=== PATIENT | male | born 1980 | race Caucasian/White ===

== ENCOUNTER 2017-11-26 00:30 | Emergency (ER) | payer SELFPAY ==
[~2017-11-26] VITALS: Ht 187.9 cm; Wt 130.2 kg
[~2017-11-26 00:30] MED LIST: IBU800 M1 PO; MOTRIN800 MG PO; NKHM; NORFLEX100 MG PO; NORVASC5 MG PO
[2017-11-26 01:32] LABS: BASO % 0.1 % (0.0-1.0); EOS % 0.2 % (1.0-4.0); HEMATOCRIT 42.6 % (42.0-52.0); HEMOGLOBIN 14.6 g/dl (14.0-18.0); LYMPH # 0.9 10*3/uL (1.3-4.4); LYMPH % 7.9 % (27.0-41.0); MEAN CELL VOLUME 91.2 fl (80.0-94.0); MEAN CORPUSCULAR HGB 31.3 pg (27.0-31.0); MEAN CORPUSCULAR HGB CONC 34.3 g/dl (33.0-37.0); MEAN PLATELET VOLUME 8.8 fl (9.6-12.3); MONO # 0.6 10*3/uL (0.1-1.0); MONO % 5.1 % (3.0-9.0); NEUT # 9.2 10*3/uL (2.3-7.9); NEUT % 86.4 % (47.0-73.0); PLATELET COUNT AUTOMATED 204 10*3/uL (130-400); RED BLOOD COUNT 4.67 10*6/uL (4.50-5.90); RED CELL DISTRI WIDTH 12.2 % (0-14.5); WHITE BLOOD COUNT 10.7 10*3/uL (4.8-10.8)
[2017-11-26 01:49] LABS: ALBUMIN 3.6 gm/dl (3.1-4.5); ALKALINE PHOSPHATASE 80 U/L (45-117); BUN 9 mg/dl (7-24); CHLORIDE 104 mmol/L (98-107); CREATININE 0.96 mg/dL (0.70-1.30); LIPASE 127 U/L (73-393); POTASSIUM 3.7 mmol/L (3.5-5.1); SGOT/AST 20 IU/L (3-35); SGPT/ALT 42 U/L (12-78); SODIUM 140 mmol/L (136-145)
[2017-11-26 01:58] LABS: TROPONIN I < 0.015 ng/ml (<0.045)
[2017-11-26 02:23] LABS: BILIRUBIN 1+ (NEGATIVE); BLOOD TRACE-LYSED (NEGATIVE); CLARITY CLEAR (CLEAR); COLOR YELLOW (YELLOW); GLUCOSE NEGATIVE (NEGATIVE); KETONE TRACE (NEGATIVE); LEUKO ESTERASE NEGATIVE (NEGATIVE); NITRITE NEGATIVE (NEGATIVE)
[2017-11-26 02:40] LABS: MUCOUS TRACE
== END 2017-11-26 02:35 | disposition home or self-care (01) ==
LOC: ED 00:30
PROVIDERS: Physician Assistant
DX: R50.9 Fever, unspecified (principal); F17.200 Nicotine dependence, unspecified, uncomplicated; Z79.899 Other long term (current) drug therapy

== ENCOUNTER 2020-05-26 00:59 | Emergency (ER) | payer SELFPAY ==
[~2020-05-26] VITALS: Ht 187.9 cm; Wt 145.1 kg
== END 2020-05-26 02:55 | disposition home or self-care (01) ==
LOC: ED
DX: I83.892 Varicose veins of left lower extremity with other complications (principal); I10 Essential (primary) hypertension; J45.909 Unspecified asthma, uncomplicated

== ENCOUNTER 2020-10-21 14:32 | Emergency (ER) | payer SELFPAY | END 2020-10-21 15:46 | disposition home or self-care (01) | LOC: ED 14:32 | DX: S60.022A Contusion of left index finger without damage to nail, initial encounter (principal); J45.909 Unspecified asthma, uncomplicated; I10 Essential (primary) hypertension; Z79.899 Other long term (current) drug therapy; X58.XXXA Exposure to other specified factors, initial encounter; Y93.89 Activity, other specified; Y92.89 Other specified places as the place of occurrence of the external cause; Y99.8 Other external cause status ==

== ENCOUNTER 2021-08-08 04:53 | Emergency (ER) | payer OTHER ==
[~2021-08-08] VITALS: Ht 187.9 cm
[2021-08-08 06:59] LABS: BILIRUBIN Negative (Negative); BLOOD Negative (Negative); CLARITY Clear (Clear); COLOR Yellow (Yellow); GLUCOSE 1+ (Negative); KETONE Negative (Negative); LEUKO ESTERASE Negative (Negative); NITRITE Negative (Negative); UROBILINOGEN 0.2 E.U./dl (0.0-1.0)
[2021-08-08 07:02] LABS: PH 8.5 (4.5-8.0)
[2021-08-08 07:10] LABS: RBC 0-2 rbc/hpf (0-2); WBC 0-2 wbc/hpf (0-5)
[2021-08-08 07:33] LABS: BASO % 0.3 % (0.0-1.0); EOS % 0.3 % (1.0-4.0); HEMATOCRIT 48.3 % (42.0-52.0); LYMPH # 1.3 10*3/uL (1.3-4.4); LYMPH % 12.5 % (27.0-41.0); MEAN CELL VOLUME 96.4 fl (80.0-94.0); MEAN CORPUSCULAR HGB 31.1 pg (27.0-31.0); MEAN CORPUSCULAR HGB CONC 32.3 g/dl (33.0-37.0); MONO # 0.5 10*3/uL (0.1-1.0); MONO % 4.4 % (3.0-9.0); NEUT # 8.4 10*3/uL (2.3-7.9); NEUT % 82.3 % (47.0-73.0); PLATELET COUNT AUTOMATED 243 10*3/uL (130-400); RED BLOOD COUNT 5.01 10*6/uL (4.50-5.90); RED CELL DISTRI WIDTH 12.7 % (0-14.5); WHITE BLOOD COUNT 10.2 10*3/uL (4.8-10.8)
[2021-08-08 07:47] LABS: ALKALINE PHOSPHATASE 90 U/L (45-117); BUN 10 mg/dl (7-24); CHLORIDE 107 mmol/L (98-107); CREATININE 0.83 mg/dL (0.70-1.30); LIPASE 128 U/L (73-393); SGOT/AST 15 IU/L (3-35); SGPT/ALT 40 U/L (12-78); SODIUM 140 mmol/L (136-145); TOTAL PROTEIN 7.5 gm/dL (6.4-8.2)
[2021-08-08] MEDS ORDERED: FLAGYL500 MG PO (08:03)
[2021-08-08] MEDS ORDERED: CIPRO500 MG PO (08:03)
== END 2021-08-08 08:06 | disposition home or self-care (01) ==
LOC: ED 04:53
PROVIDERS: Emergency Medicine; Internal Medicine
DX: K57.90 Diverticulosis of intestine, part unspecified, without perforation or abscess without bleeding (principal); K76.0 Fatty (change of) liver, not elsewhere classified; K80.80 Other cholelithiasis without obstruction; R73.03 Prediabetes

== ENCOUNTER 2024-03-31 09:06 | Emergency (ER) | payer SELFPAY ==
[~2024-03-31] VITALS: Ht 187.9 cm; Wt 122.5 kg
[~2024-03-31 09:06] MED LIST changes: +CIPRO500 MG PO; +FLAGYL500 MG PO
[2024-03-31] MEDS ORDERED: TRAMADOL HCL50 MG PO (11:57)
[2024-03-31] MEDS ORDERED: CEPHALEXIN500 M1 PO (12:05)
[2024-03-31] MEDS ORDERED: ceFAZolin sodium 1 GM VIAL IM ONE (12:10)
[2024-03-31] MEDS ORDERED: Water, Sterile 10 ML VIAL ONE (12:22)
== END 2024-03-31 12:15 | disposition home or self-care (01) ==
LOC: ED 09:06
DX: S42.401A Unspecified fracture of lower end of right humerus, initial encounter for closed fracture (principal); M25.561 Pain in right knee; M25.562 Pain in left knee; Z79.899 Other long term (current) drug therapy; Z79.2 Long term (current) use of antibiotics; V03.99XA Pedestrian with other conveyance injured in collision with car, pick-up truck or van, unspecified whether traffic or nontraffic accident, initial encounter; Y93.89 Activity, other specified; Y92.488 Other paved roadways as the place of occurrence of the external cause; Y99.8 Other external cause status

== ENCOUNTER 2025-01-07 18:45 | Emergency (ER) | payer SELFPAY ==
[~2025-01-07] VITALS: Ht 187.9 cm; Wt 131.5 kg
[~2025-01-07 18:45] MED LIST changes: +CEPHALEXIN500 M1 PO; +TRAMADOL HCL50 MG PO
[2025-01-07] MEDS ORDERED: methylPREDNISolone sod succ 125 MG VIAL IM ONE (19:15)
[2025-01-07 19:31] LABS: BASO % 0.1 % (0.0-1.0); EOS # 0.1 10*3/uL (0.0-0.4); EOS % 1.5 % (1.0-4.0); HEMATOCRIT 44.8 % (42.0-52.0); MEAN CELL VOLUME 94.5 fl (80.0-94.0); MEAN CORPUSCULAR HGB CONC 32.8 g/dl (33.0-37.0); MEAN PLATELET VOLUME 9.1 fl (9.6-12.3); MONO # 0.7 10*3/uL (0.1-1.0); NEUT # 5.4 10*3/uL (2.3-7.9); NEUT % 74.5 % (47.0-73.0); PLATELET COUNT AUTOMATED 223 10*3/uL (130-400); RED BLOOD COUNT 4.74 10*6/uL (4.50-5.90); RED CELL DISTRI WIDTH 12.2 % (0-14.5); WHITE BLOOD COUNT 7.3 10*3/uL (4.8-10.8)
[2025-01-07 19:50] LABS: BUN 10 mg/dl (9-23); CHLORIDE 104 mmol/L (98-107); POTASSIUM 3.1 mmol/L (3.4-5.1)
[2025-01-07] MEDS ORDERED: POTASSIUM CHLORIDE 20 MEQ TAB PO ONE (20:10)
[2025-01-07] MEDS ORDERED: PREDNISONE50 MG PO (20:25)
[2025-01-07] MEDS ORDERED: ALBUTEROL 8 GM INHALER INH ONE (20:30)
== END 2025-01-07 20:52 | disposition home or self-care (01) ==
LOC: ED 18:45
PROVIDERS: Physician Assistant Medical
DX: R00.2 Palpitations (principal); R07.89 Other chest pain; R06.02 Shortness of breath; R05.9 Cough, unspecified; I10 Essential (primary) hypertension; Z79.899 Other long term (current) drug therapy; Z79.2 Long term (current) use of antibiotics

== ENCOUNTER 2025-03-31 21:13 | Emergency (ER) | payer SELFPAY ==
[~2025-03-31] VITALS: Ht 188 cm; Wt 145.1 kg
[~2025-03-31 21:13] MED LIST changes: +PREDNISONE50 MG PO
[2025-03-31] MEDS ORDERED: BUMETANIDE 2.5 MG/10 ML VIAL IM ONE (21:40)
[2025-03-31] MEDS ORDERED: BUMETANIDE 1 MG/4 ML VIAL IM ONE (22:00)
[2025-03-31 22:01] LABS: BASO % 0.3 % (0.0-1.0); EOS # 0.1 10*3/uL (0.0-0.4); EOS % 1.4 % (1.0-4.0); HEMATOCRIT 43.9 % (42.0-52.0); MEAN CELL VOLUME 92.6 fl (80.0-94.0); MEAN CORPUSCULAR HGB 30.8 pg (27.0-31.0); MEAN CORPUSCULAR HGB CONC 33.3 g/dl (33.0-37.0); MEAN PLATELET VOLUME 9.5 fl (9.6-12.3); MONO # 0.6 10*3/uL (0.1-1.0); MONO % 6.3 % (3.0-9.0); NEUT # 6.7 10*3/uL (2.3-7.9); PLATELET COUNT AUTOMATED 264 10*3/uL (130-400); RED BLOOD COUNT 4.74 10*6/uL (4.50-5.90); RED CELL DISTRI WIDTH 11.9 % (0-14.5); WHITE BLOOD COUNT 9.5 10*3/uL (4.8-10.8)
[2025-03-31 22:14] LABS: BUN 14 mg/dl (9-23); CHLORIDE 105 mmol/L (98-107); POTASSIUM 3.7 mmol/L (3.4-5.1)
[2025-03-31] MEDS ORDERED: ALBUTEROL 8 GM INHALER INH ONE (22:45)
== END 2025-03-31 22:38 | disposition home or self-care (01) ==
LOC: ED 21:13
PROVIDERS: Physician Assistant Medical
DX: I10 Essential (primary) hypertension (principal); R05.9 Cough, unspecified; R06.02 Shortness of breath; R00.2 Palpitations; J45.909 Unspecified asthma, uncomplicated; F17.200 Nicotine dependence, unspecified, uncomplicated; Z79.899 Other long term (current) drug therapy; Z79.2 Long term (current) use of antibiotics